=== PATIENT | female | born 1980 ===

== ENCOUNTER 2018-10-08 14:58 | Outpatient (CLI) | payer OTHER | END 2018-10-08 14:59 | disposition home or self-care (01) | LOC: C.LAB 14:58 | DX: N11.0 Nonobstructive reflux-associated chronic pyelonephritis (principal) ==

== ENCOUNTER 2018-10-15 15:31 | Outpatient (CLI) | payer OTHER | END 2018-10-15 15:32 | disposition home or self-care (01) | LOC: C.USIC 15:32 | DX: Z33.1 Pregnant state, incidental (principal) ==

== ENCOUNTER 2018-11-19 15:28 | Outpatient (CLI) | payer OTHER | END 2018-11-19 15:29 | disposition home or self-care (01) | LOC: C.LAB 15:28 | DX: Z34.00 Encounter for supervision of normal first pregnancy, unspecified trimester (principal) ==

== ENCOUNTER 2019-02-18 09:28 | Outpatient (CLI) | payer OTHER | END 2019-02-18 09:29 | disposition home or self-care (01) | LOC: C.LAB 09:28 | DX: Z34.00 Encounter for supervision of normal first pregnancy, unspecified trimester (principal) ==